=== PATIENT | female | born 1960 | race Two or more races ===

== ENCOUNTER 2018-01-12 08:16 | Emergency (ER) | payer OTHER ==
[~2018-01-12] VITALS: Ht 152.4 cm; Wt 74.8 kg
[~2018-01-12 08:16] MED LIST: AMBIEN10 MG; AMOX1TAB12 PO; CATAFLAM50 MG; ECOTRIN81 MG; ESTRADIOL0.5 MG; IBUPROFEN800 MG PO; LODINE XL500 MG; PANTOPRAZOLE SO40 MG; SYNTHROID88 MCG; TRANXENE T-TAB7.5 MG; VITAMIN D1000 UNIT; WELLBUTRIN SR100 MG; ZYRTEC10 M3
[2018-01-12] MEDS ORDERED: LIPITOR20 MG PO (08:34)
[2018-01-12] MEDS ORDERED: COZAAR25 MG PO (08:34)
== END 2018-01-12 10:45 | disposition home or self-care (01) ==
LOC: ER 08:16
DX: N39.0 Urinary tract infection, site not specified (principal)

== ENCOUNTER → 2018-03-23 | Emergency (ER) | payer OTHER ==
[~2018-03-23] VITALS: Ht 157.5 cm; Wt 72.6 kg
[~2018-03-23] MED LIST changes: +COZAAR25 MG PO; +LIPITOR20 MG PO; +TOPROL XL50 M1 PO
== END | disposition home or self-care (01) ==
LOC: ER 14:32 → CPU-OBS 14:34 → ER 14:34
DX: R07.89 Other chest pain (principal); R00.0 Tachycardia, unspecified
CPT/HCPCS: G0378; G0379; 93005